=== PATIENT | male | born 1990 | race Two or more races ===

== ENCOUNTER 2017-02-18 12:42 | Emergency (ER) | payer SELFPAY ==
[~2017-02-18] VITALS: Ht 177.8 cm; Wt 91.0 kg
[2017-02-18] MEDS ORDERED: IBUPROFEN 600MG TABLET PO ONE (19:00)
[2017-02-18 19:04] VITALS: BP 117/68
== END 2017-02-18 19:21 | disposition home or self-care (01) ==
LOC: ER 17:39
DX: H60.92 Unspecified otitis externa, left ear (principal); H66.92 Otitis media, unspecified, left ear
CPT/HCPCS: 99283